=== PATIENT | female | born 1975 | race Caucasian/White ===

== ENCOUNTER 2016-10-11 20:17 | Emergency (ER) | payer MEDICAID ==
[2016-10-11] MEDS ORDERED: Apap-Butalbital-Caffeine 325-50-40mg Tab PO STA (21:31)
[2016-10-11] MEDS ORDERED: Apap-Butalbital-Caffeine 325-50-40mg Tab ONE (21:35)
--- NOTE | 2016-10-11 22:15 | C.PDOC ---
Time Seen by Provider: 10/11/16 21:24 Chief Complaint (Nursing): Headache History Per: Patient Onset/Duration Of Symptoms: Days (4), Intermittent Episodes, Gradual Current Symptoms Are (Timing): Still Present Severity: Moderate Quality: "Pain" Associated Symptoms: denies: Photophobia, Blurred Vision, Nausea, Vomiting, Extremity Weakness Additional History Per: Prior Records Past Medical History Reviewed: Historical Data, Nursing Documentation, Vital Signs Vital Signs: Last Vital Signs Temp 98 F 10/11/16 20:50 Pulse 76 10/11/16 20:50 Resp 18 10/11/16 20:50 BP 120/80 10/11/16 20:50 Pulse Ox 99 10/11/16 22:16 - Medical History PMH: Bronchitis - [facility] Procedures INSERTION OF INFUSION DEV INTO SUP VENA CAVA, PERC APPROACH (08/19/15) ULTRASONOGRAPHY OF SUPERIOR VENA CAVA, GUIDANCE (08/19/15) Family History: States: Unknown Family Hx - Social History Hx Tobacco Use: No Hx Alcohol Use: No Hx Substance Use: No - Immunization History Hx Tetanus Toxoid Vaccination: No Hx Influenza Vaccination: No Hx Pneumococcal Vaccination: No Review Of Systems Except As Marked, All Systems Reviewed And Found Negative. Constitutional: Negative for: Fever, Weakness Cardiovascular: Negative for: Chest Pain Respiratory: Negative for: Shortness of Breath Gastrointestinal: Negative for: Nausea, Vomiting, Abdominal Pain Musculoskeletal: Positive for: Neck Pain. Negative for: Back Pain Skin: Negative for: Rash Neurological: Positive for: Headache. Negative for: Weakness, Numbness, Incoordination, Change in Speech, Confusion, Seizures, Altered Mental Status Physical Exam - Physical Exam Appears: Non-toxic, No Acute Distress Skin: Normal Color, Warm, Dry, No Rash Head: Atraumatic, Normacephalic Eye(s): bilateral: Normal Inspection, PERRL, EOMI Ear(s): Bilateral: Normal Neck: Normal ROM, Supple Cardiovascular: Rhythm Regular Respiratory: Normal Breath Sounds, No Accessory Muscle Use Gastrointestinal/Abdominal: Soft, No Tenderness Back: No CVA Tenderness Extremity: Normal ROM, No Deformity Neurological/Psych: Oriented x3, Normal Speech, Normal Cognition, Normal Cranial Nerves, No Cerebellar Signs, Normal Motor, Normal Sensation ED Course And Treatment - Laboratory Results Urine POC: Negative O2 Sat by Pulse Oximetry: 99 Pulse Ox Interpretation: Normal - CT Scan/US CT head Other Rad Studies (CT/US): Read By Radiologist, Radiology Report Reviewed CT/US Interpretation: No acute intracranial pathology Progress - Interventions Interventions:: Observation - Medications Administered Oral: Other (Fioricet) - Data Reviewed Data Reviewed: Lab, Diagnostic imaging, Old records - Patient Status Patient status: Mostly improved - Continuity of Care Discussed patient case with:: Patient, ED Nurse - Patient Plan Patient Plan: Discharge, F/U with PCP Disposition Counseled Patient/Family Regarding: Studies Performed, Diagnosis, Need For Followup, Rx Given - Disposition Referrals: Kyle Gee MD [Medical Doctor] - Pascual Burrell MD [Staff Provider] - Disposition: HOME/ ROUTINE Disposition Time: 22:59 Condition: IMPROVED Additional Instructions: Follow up with your doctor within 1-2 days. Follow up with a Neurologist for further evaluation and treatment if headache is recurrent or persistent. Return to the ER if you develop fever, vomiting, stiff neck, change in vision, trouble walking, worsening of symptoms or if you have any other concerns. Prescriptions: Acetaminophen/Butalbital/Caf [Fioricet] 1 tab PO TID PRN #20 tab PRN Reason: Headache Instructions: General Headache (ED) - Clinical Impression Clinical Impression: Headache
[2016-10-11 23:10] VITALS: BP 107/67; PULSE 68; RESP 16; TEMP 97.4; O2SAT 97
--- NOTE | 2016-10-12 07:55 | CT ---
PROCEDURE: CT HEAD WITHOUT CONTRAST. HISTORY: Headache COMPARISON: 08/14/2015 TECHNIQUE: Axial computed tomography images were obtained through the head/brain without intravenous contrast. Radiation dose: Total exam DLP = 859 mGy-cm. This CT exam was performed using one or more of the following dose reduction techniques: Automated exposure control, adjustment of the mA and/or kV according to patient size, and/or use of iterative reconstruction technique. FINDINGS: HEMORRHAGE: No intracranial hemorrhage. BRAIN: No mass effect or edema. No atrophy . Persistent hypodensity in the left basal ganglia measuring 4 millimeters seen on series 4, image 21. This may represent a dilated prevascular space versus small lacunar infarct. VENTRICLES: Unremarkable. No hydrocephalus. CALVARIUM: Unremarkable. PARANASAL SINUSES: Unremarkable as visualized. No significant inflammatory changes. MASTOID AIR CELLS: Unremarkable as visualized. No inflammatory changes. OTHER FINDINGS: None. IMPRESSION: No acute intracranial abnormality. Persistent hypodensity in the left basal ganglia measuring 4 millimeters seen on series 4, image 21. This may represent a dilated prevascular space versus small lacunar infarct. If focal neurologic deficit persists, consider MRI. These findings were preliminarily reported at 10:05 p.m. on 10/11/[address] Pascual Francois from [facility].
== END 2016-10-11 23:10 | disposition home or self-care (01) ==
LOC: SUPCPDRO 20:17 → C.ER 20:17
DX: R51 Headache (principal)

== ENCOUNTER 2017-09-05 07:31 | Emergency (ER) | payer MEDICAID ==
[2017-09-05 07:41] VITALS: O2SAT 100
[2017-09-05 08:10] LABS: HCG,QUALITATIVE URINE NEGATIVE (NEGATIVE)
--- NOTE | 2017-09-05 08:13 | C.PDOC ---
History Of Present Illness 41-year-old female, presents to the emergency department with complaints of lower abdominal pain associated with hard stools. Pt notes she usually has a BM every 3 days but now can not remember the last time she had her last normal BM- "days". (+) nausea. Notes she eats "a lot of rice and beans. " Patient denies fever, dysuria, vomiting, chills, vaginal bleeding/discharge or any other associated symptoms. Time Seen by Provider: 09/05/17 07:44 Chief Complaint (Nursing): Abdominal Pain History Per: Patient History/Exam Limitations: no limitations Past Medical History Reviewed: Historical Data, Nursing Documentation, Vital Signs Vital Signs: Last Vital Signs Temp 97.5 F L 09/05/17 10:41 Pulse 65 09/05/17 10:41 Resp 20 09/05/17 10:41 BP 110/72 09/05/17 10:41 Pulse Ox 100 09/05/17 10:41 - Medical History PMH: Bronchitis Denies: Chronic Kidney Disease - [facility] Procedures INSERTION OF INFUSION DEV INTO SUP VENA CAVA, PERC APPROACH (08/19/15) ULTRASONOGRAPHY OF SUPERIOR VENA CAVA, GUIDANCE (08/19/15) Family History: States: No Known Family Hx - Social History Hx Tobacco Use: No Hx Alcohol Use: No Hx Substance Use: No - Immunization History Hx Tetanus Toxoid Vaccination: No Hx Influenza Vaccination: No Hx Pneumococcal Vaccination: No Review Of Systems Except As Marked, All Systems Reviewed And Found Negative. Constitutional: Negative for: Fever, Chills Respiratory: Negative for: Shortness of Breath Gastrointestinal: Positive for: Nausea, Abdominal Pain Genitourinary: Negative for: Dysuria, Vaginal Discharge, Vaginal Bleeding Musculoskeletal: Negative for: Back Pain Physical Exam - Physical Exam Appears: Non-toxic, No Acute Distress Skin: Normal Color, Warm, Dry, No Rash Head: Normacephalic Eye(s): bilateral: Normal Inspection, EOMI Nose: Normal Oral Mucosa: Moist Lips: Normal Appearing Neck: Normal ROM Chest: Symmetrical Cardiovascular: Rhythm Regular Respiratory: Normal Breath Sounds, No Accessory Muscle Use Gastrointestinal/Abdominal: Soft, Tenderness (Lower, mild.), No Guarding, No Rebound Back: No CVA Tenderness, No Vertebral Tenderness Extremity: Normal ROM, No Deformity, No Swelling Neurological/Psych: Oriented x3, Normal Speech ED Course And Treatment - Laboratory Results Result Diagrams: 09/05/17 08:25 09/05/17 08:25 O2 Sat by Pulse Oximetry: 100 (RA) Pulse Ox Interpretation: Normal Progress Note: Bloodwork, Obstructive series and UA ordered and reviewed. Patient treated with Toradol for pain. After evaluatation of labs and XR, fleet enema ordered. Pt had BM and notes her pain has resolved. Notes the stool was hard. Discussed with pt limitations of work up and instructed diet changes and follow up woith PMD in 1-2 days. Instructed to return to ER if symtpoms persist or worsen. Disposition - Disposition Disposition: HOME/ ROUTINE Disposition Time: 10:25 Condition: STABLE Additional Instructions: Increased your fiber and water in your diet. Follow up with PMD in 1-2 days, return to ER if symptoms persist or worsen. Prescriptions: Psyllium Husk [Metamucil] 1.7 gm PO DAILY #1 powder Instructions: High Fiber Diet, Constipation, Adult (DC) Forms: [facility] (Upper Sorbian), Work Excuse - Clinical Impression Clinical Impression: Constipation, Abdominal pain - Scribe Statement The provider has reviewed the documentation as recorded by the Scribe (Chaz Mayen) All medical record entries made by the Scribe were at my direction and personally dictated by me. I have reviewed the chart and agree that the record accurately reflects my personal performance of the history, physical exam, medical decision making, and the department course for this patient. I have also personally directed, reviewed, and agree with the discharge instructions and disposition.
[2017-09-05 08:15] LABS: SQUAMOUS EPITHIAL 6 /hpf (0-5); URINE BACTERIA RARE (<OCC); URINE BILIRUBIN NEGATIVE (NEGATIVE); URINE BLOOD NEGATIVE (NEGATIVE); URINE CLARITY Hazy (Clear); URINE COLOR Yellow (YELLOW); URINE GLUCOSE (UA) NORMAL (Normal); URINE LEUKOCYTE ESTERASE NEG Leu/uL (Negative); URINE PROTEIN 1+ mg/dL (NEGATIVE); URINE UROBILINOGEN NORMAL mg/dL (0.2-1.0)
[2017-09-05 08:29] LABS: BASO % 0.5 % (0.0-2.0); EOS # 0.2 K/uL (0.0-0.7); EOS % 2.4 % (0.0-4.0); HEMOGLOBIN 10.4 g/dL (11.0-16.0); MEAN CELL VOLUME 71.5 fL (81.0-99.0); MEAN CORPUSCULAR HEMOGLOBIN 22.2 pg (27.0-31.0); MEAN CORPUSCULAR HGB CONC 31.1 g/dL (33.0-37.0); MEAN PLATELET VOLUME 9.2 fL (7.2-11.7); MONO # 0.7 K/uL (0.0-0.8); MONO % 11.4 % (0.0-10.0); NEUT # 3.6 K/uL (1.8-7.0); NEUT % 54.7 % (50.0-75.0); RBC 4.68 Mil/uL (3.80-5.20); WHITE BLOOD COUNT 6.6 K/uL (4.8-10.8)
[2017-09-05 08:46] LABS: ALB/GLOB RATIO 1.2 (1.0-2.1); ALBUMIN 4.2 g/dL (3.5-5.0); ALT/SGPT 21 U/L (9-52); AST/SGOT 27 U/L (14-36); BLOOD UREA NITROGEN 12 mg/dL (7-17); CALCIUM 8.6 mg/dl (8.6-10.4); GFR AFRICAN-AMERICAN > 60; GFR NON-AFRICAN AMERICAN > 60; LIPASE 38 U/L (23-300)
[2017-09-05] MEDS ORDERED: Magnesium Citrate Oral SOL (300 ml) PO ONE (09:11)
[2017-09-05] MEDS ORDERED: Magnesium Citrate Oral SOL (300 ml) ONE (09:21)
--- NOTE | 2017-09-05 10:26 | RAD ---
Abdomen four views History: Abdominal pain Comparison: None available. Findings: Lung caraballo are clear. Heart size normal limits. Bibasilar breast and nipple shadows. Moderate fecal retention in the colon. No evidence of gross bowel obstruction. Calcified phleboliths in the pelvis. Impression: Moderate fecal retention.
[2017-09-05 10:41] VITALS: BP 110/72; PULSE 65; RESP 20; TEMP 97.5
== END 2017-09-05 10:55 | disposition home or self-care (01) ==
LOC: C.ER 07:31
DX: K59.00 Constipation, unspecified (principal); R10.30 Lower abdominal pain, unspecified
CPT/HCPCS: 74022; 80053; 81001; 83690; 84703; 85025; 87086; 96374; 99285; J1885

== ENCOUNTER 2018-01-17 10:19 | Emergency (ER) | payer MEDICAID ==
[2018-01-17 10:39] VITALS: BP 123/83; PULSE 73; RESP 18; TEMP 98.9; O2SAT 99
[2018-01-17] MEDS ORDERED: Albuterol 0.083% Inhal Sol (2.5 mg/3 mL) UD IH STA (11:23)
--- NOTE | 2018-01-17 11:44 | C.PDOC ---
History Of Present Illness 42 year old female, whose PMHx includes Bronchitis, presents to the ED for evaluation of itchy throat causing cough for 6 weeks. Patient was evaluated by her PMD and was given cough medicine (cannot recall name), allergy medication and antibiotics without relief. (+) post-tussive vomiting. She denies fever, chills, chest pain, difficulty swallowing or shortness of breath. Pt notes she has a h/o similar episodes when she was diagnosed with bronchitis. Time Seen by Provider: 01/17/18 10:57 Chief Complaint (Nursing): Cough, Cold, Congestion History Per: Patient History/Exam Limitations: no limitations Onset/Duration Of Symptoms: Days (6 weeks ) Current Symptoms Are (Timing): Still Present Location Of Pain: Throat Sick Contacts (Context): None Associated Symptoms: Cough, Vomiting (post-tussive ), Other (throat itchiness ) . denies: Fever, Chills Additional History Per: Patient Past Medical History Reviewed: Historical Data, Nursing Documentation, Vital Signs Vital Signs: Last Vital Signs Temp 98.9 F 01/17/18 10:31 Pulse 73 01/17/18 10:31 Resp 18 01/17/18 10:31 BP 123/83 01/17/18 10:31 Pulse Ox 99 01/17/18 12:35 - Medical History PMH: Bronchitis Denies: Chronic Kidney Disease Surgical History: No Surg Hx - [facility] Procedures INSERTION OF INFUSION DEV INTO SUP VENA CAVA, PERC APPROACH (08/19/15) ULTRASONOGRAPHY OF SUPERIOR VENA CAVA, GUIDANCE (08/19/15) Family History: States: Unknown Family Hx - Social History Hx Tobacco Use: No Hx Alcohol Use: No Hx Substance Use: No - Immunization History Hx Tetanus Toxoid Vaccination: No Hx Influenza Vaccination: No Hx Pneumococcal Vaccination: No Review Of Systems Constitutional: Negative for: Fever, Chills ENT: Positive for: Other (throat itchiness ) Respiratory: Positive for: Cough. Negative for: Shortness of Breath Gastrointestinal: Positive for: Vomiting Physical Exam - Physical Exam Appears: Non-toxic, No Acute Distress Skin: Normal Color, Warm, Dry Head: Atraumatic, Normacephalic Eye(s): bilateral: Normal Inspection, EOMI Ear(s): Bilateral: Normal Nose: Normal, No Discharge Oral Mucosa: Moist Throat: Normal, No Erythema, No Exudate Neck: Normal ROM, Supple Chest: Symmetrical, No Deformity, No Tenderness Cardiovascular: Rhythm Regular Respiratory: Normal Breath Sounds, No Rales, No Rhonchi, No Wheezing, Other ( occasional dry cough noted ) Extremity: Normal ROM Neurological/Psych: Oriented x3, Normal Speech, Normal Cognition ED Course And Treatment O2 Sat by Pulse Oximetry: 99 (on RA) Pulse Ox Interpretation: Normal - Other Rad CXR X-Ray: Viewed By Me, Read By Radiologist Interpretation: HISTORY: chronic cough. COMPARISON: Chest radiograph dated . TECHNIQUE: Chest PA and lateral. FINDINGS: LUNGS: No active pulmonary disease. PLEURA: No significant pleural effusion identified. No pneumothorax apparent. CARDIOVASCULAR: Normal. OSSEOUS STRUCTURES: No significant abnormalities. VISUALIZED UPPER ABDOMEN: Normal. OTHER FINDINGS: None. IMPRESSION: No active disease. Progress Note: CXR ordered and reviewed. Albuterol INH given. On reassessment , patient is resting comfortably with no wheezing, chest pain, or retractions. Cough improved. Oxygen saturation and breath sounds remain WNL Patient is alert and oriented x 3. Patient was advised to follow up with physician/clinic in 1-2 days and return to ED if symptoms worsen or persist. Disposition - Disposition Referrals: Kyle Gee MD [Medical Doctor] - Disposition: HOME/ ROUTINE Disposition Time: 11:41 Condition: STABLE Additional Instructions: Follow up with your doctor in 1-2 days. Return to ER if symptoms persist or worsen. Prescriptions: Albuterol HFA [Ventolin HFA 90 mcg/actuation (8 g)] 2 puff IH [id number] PRN #1 puff PRN Reason: Cough Guaifen/Dextromethorphan/PE [Mucinex Fast-Max Congest-Cough] 1 each PO Q6 #20 tablet predniSONE [Prednisone] 40 mg PO DAILY #8 tab Instructions: Acute Bronchitis, Adult (DC) Forms: [facility] (Estonian), Work Excuse - Clinical Impression Clinical Impression: Bronchitis - PA / CENTER RECEPTIONIST / Resident Statement MD/DO has reviewed & agrees with the documentation as recorded. - Scribe Statement The provider has reviewed the documentation as recorded by the Scribe (Shaneka Wood) All medical record entries made by the Scribe were at my direction and personally dictated by me. I have reviewed the chart and agree that the record accurately reflects my personal performance of the history, physical exam, medical decision making, and the department course for this patient. I have also personally directed, reviewed, and agree with the discharge instructions and disposition.
[2018-01-17] MEDS ORDERED: Albuterol-Ipratrop 3 mg / 0.5 (3 ml) UD ONE (11:55)
--- NOTE | 2018-01-17 11:57 | RAD ---
Date of service: 01/17/2018 HISTORY: chronic cough COMPARISON: Chest radiograph dated 08/24/2015. TECHNIQUE: Chest PA and lateral FINDINGS: LUNGS: No active pulmonary disease. PLEURA: No significant pleural effusion identified. No pneumothorax apparent. CARDIOVASCULAR: Normal. OSSEOUS STRUCTURES: No significant abnormalities. VISUALIZED UPPER ABDOMEN: Normal. OTHER FINDINGS: None. IMPRESSION: No active disease.
== END 2018-01-17 12:10 | disposition home or self-care (01) ==
LOC: C.ER 10:19
DX: J40 Bronchitis, not specified as acute or chronic (principal)

== ENCOUNTER 2018-08-28 14:03 | Outpatient (CLI) | payer MEDICAID | END 2018-08-28 14:04 | disposition home or self-care (01) | LOC: C.MAMMO 14:03 | DX: Z12.31 Encounter for screening mammogram for malignant neoplasm of breast (principal) ==